=== PATIENT | female | born 1950 | race Caucasian/White ===

== ENCOUNTER 2017-05-13 08:39 | Inpatient (IN) | payer OTHER ==
[~2017-05-13 08:39] MED LIST: ROPIVACAINE 0.2% 80 MG, EPINEPHrine 0.2 MG, KETOROLAC TROMETHAMINE 30 MG in SYRINGE 0 ML IU ONE; TRANEXAMIC ACID 3,000 MG in NS (SYRINGE) 50 ML IRR ONE
[2017-05-13] MEDS ORDERED: TRANEXAMIC ACID 3,000 MG/50 ML BAG IRR ONE (11:08)
--- NOTE | 2017-05-13 11:14 | PDHPUP ---
History & Physical Update H&P update statement: This history and physical update is based on an assessment of the patient which was completed after admission or registration (within 24 hours), but prior to the surgery/procedure. H&P update: H&P reviewed & patient examined, no change in patient's condition since H&P completed
[2017-05-13] MEDS ORDERED: ACETAMINOPHEN 325 MG TAB PO ONE (12:17)
[2017-05-13] MEDS ORDERED: FAMOTIDINE 20 MG TAB PO ONE (12:17)
[2017-05-13] MEDS ORDERED: DEXAMETHASONE 4 MG/ML VIAL IVP ONE (12:17)
[2017-05-13] MEDS ORDERED: ceFAZolin 2 GM/SWFI 2 GM/20 ML SYR IVP ONE ×2 (12:17→12:30)
[2017-05-13] MEDS ORDERED: LR 1,000 ML IV ONE (12:18)
[2017-05-13] MEDS ORDERED: LIDOCAINE 1% 2 ML INJ ID PRN (12:18)
[2017-05-13] MEDS ORDERED: MIDAZOLAM 2 MG/2 ML VIAL IVP ONE (13:06)
[2017-05-13] MEDS ORDERED: PROPOFOL 200 MG/20 ML VIAL ONE ×2 (13:57→15:19)
[2017-05-13] MEDS ORDERED: MEPERIDINE 25 MG/ML SYR IVP PRN (14:30)
[2017-05-13] MEDS ORDERED: ONDANSETRON 4 MG/2 ML VIAL IVP PRN ×2 (14:30→14:37)
[2017-05-13] MEDS ORDERED: METOCLOPRAMIDE 10 MG/2 ML VIAL IVP PRN ×2 (14:30→14:37)
[2017-05-13] MEDS ORDERED: PROMETHAZINE HCL 25 MG/ML INJ IVP PRN ×2 (14:30→14:37)
[2017-05-13] MEDS ORDERED: HYDROmorphONE/DILAUDID 1 MG/ML INJ IVP PRN (14:30)
[2017-05-13] MEDS ORDERED: LABETALOL HCL 5 MG/ML 20 ML MDV IVP PRN (14:30)
[2017-05-13] MEDS ORDERED: HYDROCODONE/APAP 5/325 TAB PO PRN (14:30)
[2017-05-13] MEDS ORDERED: fentaNYL 100 MCG/2 ML INJ IVP PRN (14:30)
[2017-05-13] MEDS ORDERED: LR 500 ML IV PRN (14:30)
[2017-05-13] MEDS ORDERED: NALOXONE HCL 0.4 MG/ML INJ IVP PRN (14:30)
--- NOTE | 2017-05-13 14:30 | PDANEPAE ---
ANE History of Present Illness 66 year female for left anterior hip arthroplasty. ANE Past Medical History - Cardiovascular History Hx Hypertension: No Hx Arrhythmias: No Hx Chest Pain: No Hx Coronary Artery / Peripheral Vascular Disease: No Hx CHF / Valvular Disease: No Hx Palpitations: No - Pulmonary History Hx COPD: No Hx Asthma/Reactive Airway Disease: No Hx Recent Upper Respiratory Infection: No Hx Oxygen in Use at Home: No Hx Sleep Apnea: No Sleep Apnea Screening Result - Last Documented: Negative Pulmonary History Comment: CHILDHOOD ASTHMA. 02/2017 - POSS PNEUMONIA FOLLOWING FLU VIRUS - NOW RESOLVED - Neurologic History Hx Cerebrovascular Accident: No Hx Seizures: No Hx Dementia: No Neurologic History Comment: MIGRAINES IN PAST 20s-50s - Endocrine History Hx Diabetes: Yes Endocrine History Comment: HYPOTHYROID - Renal History Hx Renal Disorders: No Renal History Comment: KIDNEY STONES IN PAST W/LITHOTRIPSY - Liver History Hx Hepatic Disorders: No - Neurological & Psychiatric Hx Hx Neurological and Psychiatric Disorders: No - Cancer History Hx Cancer: No - Congenital Disorder History Hx Congenital Disorders: No - GI History Hx Gastrointestinal Disorders: No - Other Health History 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 BOIL ARM. TONSILECTONY. WISDOM TEETH ANE Review of Systems Review of systems is: negative Review of Systems: - Exercise capacity METS (RN): 4 METS ANE Patient History - Allergies Allergies/Adverse Reactions: corn Allergy (Verified 05/13/17 13:12) Other-Enter Comments egg Allergy (Verified 05/13/17 13:12) Other-Enter Comments ephedrine [From Tedral] Allergy (Verified 04/13/17 11:39) Hives gluten Allergy (Verified 05/13/17 13:12) Other-Enter Comments Milk Containing Products [dairy] Allergy (Verified 05/13/17 13:12) Other-Enter Comments monosodium glutamate Allergy (Verified 05/13/17 13:12) Other-Enter Comments phenobarbital [From Tedral] Allergy (Verified 04/13/17 11:39) Hives theophylline [From Tedral] Allergy (Verified 04/13/17 11:39) Hives - Home Medications Home Medications: Ascorbic Acid [Vitamin C 500 mg (*)] 1,000 mg PO BID 04/13/17 [Last Taken 1 Week Ago ~05/06/17] Herbals/Supplements -Info Only 1 ea PO DAILY 04/13/17 [Last Taken 1 Week Ago ~] Multivitamins [Multivitamin (*)] 1 each PO DAILY 04/13/17 [Last Taken 1 Week Ago ~05/06/17] Thyroid,Pork [[place] Thyroid] 30 mg PO DAILY 04/13/17 [Last Taken 05/13/17 09:00 ] Ferrous Sulfate [Ferrous Sulf 325 MG (*)] 325 mg PO DAILY 05/13/17 [Last Taken 05/02/17] - NPO status NPO Since - Liquids (Date): 05/13/17 NPO Since - Liquids (Time): 10:30 NPO Since - Solids (Date): 05/12/17 NPO Since - Solids (Time): 20:00 - Smoking Hx Smoking Status: Never smoked - Family Anes Hx Family Hx Anesthesia Complications: NEG ANE Labs/Vital Signs - Vital Signs Blood Pressure: 117/73 Heart Rate: 70 Respiratory Rate: 16 O2 Sat (%): 96 Height: 160.02 cm Weight: 56.699 kg ANE Physical Exam - Airway Neck exam: FROM Mallampati Score: Class 1 Mouth exam: normal dental/mouth exam - Pulmonary Pulmonary: no respiratory distress - Cardiovascular Cardiovascular: regular rate and rhythym ANE Anesthesia Plan Anesthesia Plan: spinal
[2017-05-13] MEDS ORDERED: diphenhydrAMINE 25 MG CAP PO PRN (14:37)
[2017-05-13] MEDS ORDERED: oxyCODONE IR 5 MG TAB PO PRN (14:37)
[2017-05-13] MEDS ORDERED: MAGNESIUM HYDROXIDE 30 ML UDCUP PO PRN (14:37)
[2017-05-13] MEDS ORDERED: DIPHENOXYLATE/ATROPINE LOMOTIL 1 TAB PO PRN (14:37)
[2017-05-13] MEDS ORDERED: TEMAZEPAM 15 MG CAP PO PRN (14:37)
[2017-05-13] MEDS ORDERED: LACTULOSE 20 GM/30 ML UDCUP PO PRN (14:37)
[2017-05-13] MEDS ORDERED: POLYETHYLENE GLYCOL 3350 17 GM PKT PO PRN (14:37)
[2017-05-13] MEDS ORDERED: PROMETHAZINE HCL 25 MG SUPPR PR PRN (14:37)
[2017-05-13] MEDS ORDERED: CYCLOBENZAPRINE 10 MG TAB PO PRN (14:37)
[2017-05-13] MEDS ORDERED: ONDANSETRON DISINTEGRATING 4 MG TAB PO PRN (14:37)
[2017-05-13] MEDS ORDERED: BISACODYL 10 MG SUPP PR PRN (14:37)
[2017-05-13] MEDS ORDERED: LR 1,000 ML IV SCH (15:00)
--- NOTE | 2017-05-13 15:38 | POSTANESTH ---
Post Anesthetic Evaluation Cardiovascular Status: Normal, Stable Respiratory Status: Normal, Stable Level of Consciousness/Mental Status: Can Participate in Eval Pain Control: Adequate, Prn Tx Ordered Nausea/Vomiting Control: Adequate, Prn Tx Ordered Complications Possibly Related to Anesthesia: None Noted
--- NOTE | 2017-05-13 15:54 | POSTOPPROG ---
Post Op Note Date of Operation: 05/13/17 Surgeon: Abbey Bedolla Gmat Instructor: Chrissy Bedolla PAc Anesthesiologist: Sage Anesthesia: Spinal Pre-op Diagnosis: L hip DJD Post-op Diagnosis: same Indication: pain Procedure: L CEZAR Findings: djd hip Inf/Abcess present in the surg proc area at time of surgery?: No EBL: 100-500
[2017-05-13] MEDS: ACETAMINOPHEN 325 MG TAB PO SCH (18:18)
[2017-05-13] MEDS: FAMOTIDINE 20 MG TAB PO SCH (22:27)
[2017-05-13] MEDS: SENNOSIDES/DOCUSATE SODIUM TAB PO SCH (22:27)
[2017-05-13] MEDS: ASPIRIN 81 MG CHEWABLE TAB PO SCH (22:27)
[2017-05-13] MEDS: ceFAZolin 2 GM/DEXTROSE 100 ML IV SCH (22:27)
[2017-05-14] MEDS: ACETAMINOPHEN 325 MG TAB PO SCH ×5 (00:13→23:46)
[2017-05-14] MEDS: ceFAZolin 2 GM/DEXTROSE 100 ML IV SCH (05:21)
[2017-05-14] MEDS: ASPIRIN 81 MG CHEWABLE TAB PO SCH ×2 (08:22→21:42)
[2017-05-14] MEDS: SENNOSIDES/DOCUSATE SODIUM TAB PO SCH ×2 (08:22→21:42)
[2017-05-14] MEDS: FAMOTIDINE 20 MG TAB PO SCH ×2 (08:22→21:42)
[2017-05-14] MEDS: THYROID 60 MG TAB PO SCH (08:24)
[2017-05-14] MEDS ORDERED: NS BOLUS 1000 ML (Wide open) IV ONE (10:30)
--- NOTE | 2017-05-14 12:36 | SOAPPROG ---
SOAP Progress Note Assessment/Plan: Assessment: Patient is doing well POD 1 s/p LTHA Pain management: pain is well controlled on oral pain meds. VTE ppx: recommend aspirin 81 mg BID for 4 weeks, cont NAV and SCDs Anemia: level is expected initially postop. Continue to monitor D/c planning: d/c to home today vs tomorrow pending release from PT and improvement in lightheadedness lightheadedness: continues to be symptomatic, IV bolus this morning, may benefit from another night in the hospital Plan: 05/14/17 12:32 Subjective: Caitlyn is doing well today, denies SOB, chest pain and N/v. c/o lightheadedness Objective: Vital Signs Temp Pulse Resp BP Pulse Ox 36.8 C 87 18 88/54 L 95 05/14/17 11:47 05/14/17 11:47 05/14/17 08:00 05/14/17 11:47 05/14/17 08:00 Laboratory Results 05/14/17 04:40 05/13/17 05/14/17 05/15/17 05:59 05:59 05:59 Intake Total 2705 500 Output Total 1400 550 Balance 1305 -50 LLE: incision dressing is clean and dry, NVI, +pf/df ICD10 Worksheet Patient Problems: Problems Problem Status Onset Primary localized osteoarthritis of left hip Acute
[2017-05-14 15:52] VITALS: RESP 16
[2017-05-14 23:36] VITALS: TEMP 98.2
[2017-05-15] MEDS: ACETAMINOPHEN 325 MG TAB PO SCH ×2 (05:45→11:23)
[2017-05-15] MEDS: THYROID 60 MG TAB PO SCH (08:22)
[2017-05-15] MEDS: SENNOSIDES/DOCUSATE SODIUM TAB PO SCH (08:24)
[2017-05-15] MEDS: ASPIRIN 81 MG CHEWABLE TAB PO SCH (09:07)
[2017-05-15] MEDS: FAMOTIDINE 20 MG TAB PO SCH (09:07)
--- NOTE | 2017-05-15 11:19 | SOAPPROG ---
SOAP Progress Note Assessment/Plan: Assessment: Patient is doing well POD 2 s/p LTHA Pain management: pain is well controlled on oral pain meds. VTE ppx: recommend aspirin 81 mg BID for 4 weeks, cont NAV and SCDs Anemia: level is expected initially postop. Continue to monitor D/c planning: d/c to home today vs tomorrow pending release from PT and improvement in lightheadedness lightheadedness: resolved Plan: 05/14/17 12:32 05/15/17 11:17 Subjective: denies lightheadedness, mild pain Objective: Vital Signs Temp Pulse Resp BP Pulse Ox 36.8 C 87 16 100/56 L 95 05/15/17 07:40 05/15/17 07:40 05/15/17 07:40 05/15/17 07:40 05/15/17 07:40 Laboratory Results 05/15/17 04:10 05/14/17 05/15/17 05/16/17 05:59 05:59 05:59 Intake Total 2705 4150 Output Total 1400 5050 450 Balance 1305 -900 -450 incision dressing is clean and dry ICD10 Worksheet Patient Problems: Problems Problem Status Onset Primary localized osteoarthritis of left hip Acute
[2017-05-15 11:33] VITALS: BP 99/62; PULSE 83; O2SAT 98
--- NOTE | 2017-05-21 09:23 | GOP ---
[f rep st] OPERATIVE REPORT DATE OF OPERATION: 05/13/2017 SURGEON: Sury Bedolla MD BEEHIVE KILN SUPERVISOR: SYLVESTER Munguia. ANESTHESIA: Spinal. PREOPERATIVE DIAGNOSIS: Left hip osteoarthritis. POSTOPERATIVE DIAGNOSIS: Left hip osteoarthritis. PROCEDURE PERFORMED: Left total hip arthroplasty with x-ray. FINDINGS: ESTIMATED BLOOD LOSS: 200 cc. INDICATIONS: The patient has progressively worsening arthritis of the hip which has failed medical m anagement. The patient understands the treatment options including continued non-operative care and has selected surgical intervention. The patient has decided to undergo total hip arthroplasty via th e direct anterior approach, understanding the risks of the procedure including, but not limited to, n eurovascular injury, infection, persistent pain, component wear and loosening, deep venous thrombosis , pulmonary embolism, limb length inequality, hip instability (including dislocation), and intra-oper ative fractures. DESCRIPTION OF PROCEDURE: After proper identification of the patient including verification and braydon ing the surgical site, the patient was brought to the operating room and placed in the supine positio n. All bony prominences were well padded. Anesthesia was induced without complication and intraveno us prophylactic antibiotics were administered prior to skin incision. The operative leg was placed in the Trumpf Arch table extension and the well leg in a Yellofin leg ho lder. The patient was prepped and draped in the usual sterile fashion. The C-arm was draped for int ra-operative fluoroscopy to check acetabular position, femoral component position including leg lengt h and femoral offset. Attention was then drawn to surgical exposure of the hip. An incision was made with a #10 Bard Darleen r blade starting 3 cm lateral and 3 cm distal to the anterior superior iliac spine measuring 8-10 cm and coursing distally toward the greater trochanter. The skin and subcutaneous tissues were divided sharply down to the fascia julio césar. The fascia julio césar was incised in line with the skin incision exposing the underlying tensor fascia julio césar muscle. The muscle was bluntly elevated from the fascia and the f irst extracapsular Cobra retractor was placed laterally at the junction of the superior femoral neck and greater trochanter. The lateral femoral circumflex vessels were identified, cauterized, and divi ded with the Aquamantys bipolar cautery. The deep investing fascia of the TFL was divided to allow p charly mobilization of the muscle preventing damage during the retraction. The reflected head of the rectus femoris muscle was elevated off the anterior hip capsule and a medial Cobra retractor was plac ed just proximal to the lesser trochanter. The anterior capsulotomy was made sharply from the superolateral acetabulum to the saddle junction of the superior femoral neck and greater trochanter, then coursing inferomedial towards the lesser troc hanter. The retractors were then placed in the intracapsular position for femoral neck osteotomy. C orresponding to pre-operative templating, the osteotomy was made with the oscillating saw carefully p rotecting the greater trochanter and soft tissues. The femoral head was removed from the acetabulum with a corkscrew and confirmed to be severely arthritic with exposed bone, deformity and osteophytes. Similar findings were confirmed in the acetabulum. The Arch table extension was then placed in 40 degrees external rotation. Attention was then drawn to the acetabular preparation. After placement of the anterior and posterio r Cobra retractors outside the labrum and intracapsular, the circumferential labrum was removed sharp ly. The foveal contents were then removed and hemostasis obtained with cautery. The first reamer selected was sized using the removed femoral head. Reaming began with medialization and then commenced in 2 mm increments at 45 degrees of abduction and 15 degrees of anteversion using fluoroscopic navigation. Reaming ceased 1 mm less than the definitive acetabular component and yaya esponded to the pre-operative templating. The final acetabular component was inserted using fluorosc opy to achieve proper orientation yielding excellent purchase and stability in the acetabulum. The f inal acetabular liner was then placed and its seating confirmed. Attention was then turned to the femur. The Arch table extension was placed in extension and adducti on, delivering the osteotomized femoral neck into the wound. A 2-pronged femoral elevator was placed at the calcar and another at the tip of the greater trochanter. The posterolateral capsule was rele ased with cautery allowing mobilization of the femur lateral and anterior for preparation. The exter nal rotators were visualized and preserved. A curette and rongeur were used to open the starting poi nt for broaching. Serial broaching started with the #0 broach and ended with the broach that exhibit ed excellent fit in the proximal femur. A change in pitch during mallet strikes was accompanied by t he inability to advance the broach any further. The trial reduction was performed and fluoroscopic n avigation was utilized to check limb length. Adjustments were made to equalize limb length according ly. After the final trials were accepted they were removed and the wound was copiously lavaged. The femo ral component was seated to the same depth as the final broach and the femoral head was impacted onto the clean trunnion. The hip was then reduced for the final time and once more fluoroscopy was used to check that limb length equality was achieved. The wound was irrigated and closed in layers, the fascia julio césar with 2-0 Quill, the subcutaneous tissue with 2-0 Quill, and the skin with Dermabond. Sterile dressings were applied. Final sharps and spon ge counts were accurate. The patient was then transferred to a hospital bed and brought to the [facility] room in stable condition. IMPLANTS: Accolade II size 5 at 127. Acetabular component a 50 mm Trident II. The liner is a Tride nt X3, 32 mm. Head is a Biolox Delta 32 mm +0. /[id number]/MODL
== END 2017-05-15 12:13 | disposition home or self-care (01) | DRG 470 ==
LOC: F3N 11:42
PROVIDERS: ADMIT Orthopaedic Surgery; ATTEND Orthopaedic Surgery
PROC: 0SRB04A Replacement of Left Hip Joint with Ceramic on Polyethylene Synthetic Substitute, Uncemented, Open Approach (ICD-10-PCS; principal; 2017-05-13 14:15)
DX: M16.12 Unilateral primary osteoarthritis, left hip (principal); D62 Acute posthemorrhagic anemia; E03.9 Hypothyroidism, unspecified; G43.909 Migraine, unspecified, not intractable, without status migrainosus; Z87.442 Personal history of urinary calculi
CPT/HCPCS: 97116-GP; 97161-GP; 97165-GO; 97535-GO; G8987-GO-CK; G8988-GO-CI; G8989-GO-CI; J0171; J0690; J1100; J1885; J2250; J2405; J2704; J2795

== ENCOUNTER 2017-11-29 09:53 | Observation (INO) | payer OTHER ==
[2017-11-29] MEDS ORDERED: DIAZEPAM 5 MG/ML 1 ML SYR IVP ONE ×2 (12:08→14:03)
[2017-11-29 12:45] LABS: PLATELET COUNT 296 10^3/uL (150-400)
--- NOTE | 2017-11-29 12:45 | EDPHY ---
H & P Smoking Status: Never smoked Time Seen by Provider: 11/29/17 11:20 HPI/ROS: CHIEF COMPLAINT: Severe left hip pain HISTORY OF PRESENT ILLNESS: 66-year-old female presents to the emergency department with severe pain in her left hip. The patient states that she had a total left hip replacement May of [address] Dre Bedolla. The patient has been doing well. She has been taking dance classes over last few weeks and does not recall in known trauma or injury but thinks that maybe she has overdone it. She is now having so much discomfort in her left hip that she cannot walk. Pain has been getting progressively worse over last 2 weeks but acutely worse over last 48 hr. No fevers or chills. No pain in her groin. She is unable to bear weight or walk. She has constant level of a dull achy pain and then will get sharp intense pain that will take her breath away up to a level of a 9 or higher. She denies any radicular symptoms in her lower leg. She denies feeling weak in her lower leg. She feels "it feels like I loss the cushion in my left hip". Denies abdominal pain. No fevers or chills. No rash. She has taken ibuprofen and Tylenol with only minimal relief. The pain in her left hip is especially worse with any kind of movement. REVIEW OF SYSTEMS: Constitutional: No fever, no chills. Eyes: No double or blurry vision. ENT: No sore throat. Respiratory: No cough, no shortness of breath. Cardiac: No chest pain. Gastrointestinal: No abdominal pain, vomiting or diarrhea. Genitourinary: No dysuria. Musculoskeletal: No neck or back pain. Skin: No rashes. Neurological: No headache. (Sophie Nelson) Past Medical/Surgical History: Degenerative joint disease, left total hip replacement by Dr. Dre Bedolla 05/13/2017 (Sophie Nelson) Social History: and lives in [place]. She is retired. (Sophie Nelson) Physical Exam: General Appearance: Alert, no distress. Eyes: Pupils equal and round. Extraocular motions are all intact. ENT: Mouth: Mucous membranes moist. Respiratory: No wheezing, rhonchi, or rales, lungs are clear to auscultation. Cardiovascular: Regular rate and rhythm. Gastrointestinal: Abdomen is soft and nontender, no masses, no rebound or guarding, bowel sounds normal. Neurological: Alert and oriented x 3, cranial nerves II through XII grossly intact Skin: Warm and dry, no rashes. Musculoskeletal: Nontender to palpate along the cervical, thoracic or lumbar spine. Neck is supple. Extremities: Limited range of motion of the left hip secondary to pain. She has no pain however with passive internal or external rotation of the left hip. She has pain with flexing her left knee. She also developed severe pain in her left hip even just with lowering the head of the bed down to try to lie her supine. She has a healed incision to the left lateral aspect of her hip which reveals no redness or warmth. It is nontender to palpate over the incision over the lateral aspect of her left hip. Psychiatric: Patient is oriented X 3, there is no agitation. (Sophie Nelson) Constitutional: Initial Vital Signs Temperature (C) 36.8 C 11/29/17 09:54 Heart Rate 84 11/29/17 09:54 Respiratory Rate 18 11/29/17 09:54 Blood Pressure 140/84 H 11/29/17 09:54 O2 Sat (%) 96 11/29/17 09:54 O2 Delivery Mode Nasal Cannula O2 (L/minute) 2 Allergies/Adverse Reactions: corn Allergy (Verified 11/29/17 09:54) Other-Enter Comments egg Allergy (Verified 11/29/17 09:54) Other-Enter Comments ephedrine [From Tedral] Allergy (Verified 11/29/17 09:54) Hives gluten Allergy (Verified 11/29/17 09:54) Other-Enter Comments Milk Containing Products [dairy] Allergy (Verified 11/29/17 09:54) Other-Enter Comments monosodium glutamate Allergy (Verified 11/29/17 09:54) Other-Enter Comments phenobarbital [From Tedral] Allergy (Verified 11/29/17 09:54) Hives theophylline [From Tedral] Allergy (Verified 11/29/17 09:54) Hives Home Medications: Medication Instructions Recorded Herbals/Supplements -Info Only 1 ea PO DAILY 11/29/17 Nature-Throid 48.75mg Tab 48.75 mg PO DAILY 11/29/17 Acetaminophen [Tylenol 325mg (*)] 650 mg PO Q4HRS PRN tab 11/30/17 Gabapentin [Neurontin 100 MG (*)] 100 mg PO TID #60 cap 11/30/17 methylPREDNISolone [Medrol Dose 4 mg PO DAILY #1 ea 11/30/17 Eulalio] oxyCODONE IR [Oxycodone Ir (*)] 5 - 10 mg PO Q3HRS PRN #15 tab 11/30/17 Medical Decision Making - Diagnostics Imaging: I viewed and interpreted images myself ED Course/Re-evaluation: 66-year-old female presents to the emergency department with severe pain in her left hip. Examination of her hip reveals healed surgical incision. It is not warm to the touch. She has no pain with external or internal rotation of the left hip. No palpable bony tenderness. X-rays of her left hip reveal no fractures or evidence of dislocation. Hardware appears in place. Patient had IV established and was given IV Toradol, IV Valium, IV Dilaudid with only minimal relief. Patient will be admitted to the hospitalist, Dr. Mao, for pain management. I also spoke with Rafa, on-call physician anesthetic assistant for Dr. Bedolla, who will alert Dr. Tye michelle that his patient is being admitted to the hospital with left hip pain. (Sophie Nelson) I did not see this patient while she was in the emergency department. However her care was discussed with the PA while the patient was in the department. I agree with treatment plan and management (Scott Andujar) Differential Diagnosis: Including but not limited to muscular strain, septic arthritis, fracture, dislocation, contusion, sprain (Sophie Nelson) - Data Points Laboratory Results: Laboratory Results 11/29/17 12:30 11/29/17 12:30 Medications Given: Discontinued Medications Acetaminophen (Tylenol) 650 mg PO Q4HRS PRN PRN Reason: Pain, Mild/Fever, Can Take PO Stop: 05/28/18 15:47 Last Admin: 11/30/17 09:28 Dose: 650 mg Celecoxib (Celebrex) 200 mg PO BID KEIRY Stop: 05/29/18 08:59 Last Admin: 11/30/17 09:29 Dose: 200 mg Diazepam (Valium) 2.5 mg IVP EDNOW ONE Stop: 11/29/17 12:09 Last Admin: 11/29/17 12:42 Dose: 2.5 mg Diazepam (Valium) 2.5 mg IVP EDNOW ONE Stop: 11/29/17 14:04 Last Admin: 11/29/17 14:29 Dose: 2.5 mg Diazepam (Valium) 2 mg PO Q6HRS PRN PRN Reason: Anxiety, Able to Take PO Stop: 05/28/18 16:04 Last Admin: 11/29/17 22:16 Dose: 2 mg Enoxaparin Sodium (Lovenox) 40 mg SC DAILY [facility] Stop: 05/29/18 08:59 Last Admin: 11/30/17 09:29 Dose: 40 mg Gabapentin (Neurontin) 100 mg PO TID [facility] Stop: 05/29/18 15:59 Last Admin: 11/30/17 15:34 Dose: 100 mg Hydromorphone HCl (Dilaudid) 0.5 mg IVP EDNOW ONE Stop: 11/29/17 15:43 Last Admin: 11/29/17 16:35 Dose: 0.5 mg Ketorolac Tromethamine (Toradol) 15 mg IVP EDNOW ONE Stop: 11/29/17 14:03 Last Admin: 11/29/17 14:28 Dose: 15 mg Miscellaneous Medication (Nature-Throid 48.75mg Tab) 48.75 mg PO DAILY [facility] Stop: 05/29/18 08:59 Last Admin: 11/30/17 06:54 Dose: 48.75 mg Oxycodone HCl (Oxycodone Ir) 5 - 10 mg PO Q3HRS PRN PRN Reason: Pain, Severe Able to Take PO Stop: 12/09/17 15:47 Last Admin: 11/29/17 23:27 Dose: 5 mg Departure - Departure Disposition: [facility] Inpatient Acute Clinical Impression: Left hip pain Condition: Good
[2017-11-29] MEDS ORDERED: KETOROLAC 15 MG/1 ML SDV IVP ONE (14:02)
[2017-11-29] MEDS ORDERED: HYDROmorphONE/DILAUDID 1 MG/ML INJ IVP ONE (15:42)
[2017-11-29] MEDS ORDERED: oxyCODONE IR 5 MG TAB PO PRN (15:48)
[2017-11-29] MEDS ORDERED: HYDROmorphONE/DILAUDID 1 MG/ML INJ IVP PRN (15:48)
[2017-11-29] MEDS ORDERED: ONDANSETRON 4 MG/2 ML VIAL IVP PRN (15:48)
[2017-11-29] MEDS ORDERED: HYDROCODONE/APAP 5/325 TAB PO PRN (15:48)
[2017-11-29] MEDS ORDERED: ONDANSETRON DISINTEGRATING 4 MG TAB PO PRN (15:48)
[2017-11-29] MEDS ORDERED: DIAZEPAM 2 MG TAB PO PRN (16:05)
--- NOTE | 2017-11-29 16:36 | GHP ---
[f rep st] HISTORY AND PHYSICAL DATE OF ADMISSION: 11/29/2017 CHIEF COMPLAINT: Left-sided hip pain. HISTORY OF PRESENT ILLNESS: This is a 66-year-old female, who had a left-sided CEZAR in May by Dr Delaney Bedolla. She had recovered well since then. About 3 weeks ago, she increased her activity level by taking 7 tango classes a week. She had 1 class where she was doing significant hip rotating type moves. Later that evening she began to notice worsening pain in her left hip. This was about 2 wee ks ago. She initially felt as though this were muscular in nature and did some exercises to stretch this out. She did continue taking tango classes. Yesterday, the pain became extremely severe. She notes nothing clearly that worsened it yesterday, though it is located in her left buttocks as well a s left hip and somewhat in her left groin. The pain is worse with any movement of her leg. She is b nedra able to walk today. Had to clutch the wall to make it to the bathroom. She has not had any fe vers. She has not noticed any swelling or redness around the area. She has taken Tylenol as well as Advil with minor improvement in her pain. She called Dr. Bedolla's office over the weekend withou t receiving any clear advice. PAST MEDICAL/SURGICAL HISTORY: 1. Hypothyroid. 2. Left CEZAR in May. 3. Lithotripsy in February of 2016. MEDICATIONS: Please see medication reconciliation. ALLERGIES: Multiple food allergies, and she has an allergy to Tedral. SOCIAL HISTORY: She does not drink or smoke. FAMILY HISTORY: Reviewed and noncontributory. REVIEW OF SYSTEMS: 10-point review of systems is conducted and is negative except per HPI. PHYSICAL EXAM: VITAL SIGNS: Blood pressure 110/64, heart rate 62, respiration rate 16, sating at 97 % on 2 L. Temperature 36.9. GENERAL: The patient is a pleasant female who appears somewhat uncomfo rtable lying in bed, barely able to move side to side. HEENT: Shows her to be normocephalic, atraum atic. CARDIOVASCULAR: Regular rate and rhythm. There are no murmurs, rubs, or gallops. PULMONARY: Shows lungs are clear to auscultation bilaterally. ABDOMEN: Soft, nontender, nondistended. SKIN: Showed no rash. : No Felix. NEUROLOGIC: Shows her to be alert and oriented x3. Moving all ex tremities. PSYCHIATRIC: Shows normal mood and affect. EXTREMITIES: Shows her left leg to be non e rythematous, non edematous. She has extremely severe pain with any motion of her left leg. LABS: CBC is normal. Basic metabolic panel is normal. DATA: 1. I discussed with Sophie Nelson, PAC. Will admit to med/surg. 2. I reviewed her hip x-ray. This shows a history of a CEZAR with no periprosthetic fracture, non dis located. IMPRESSION AND PLAN: 1. Left hip pain: Quite severe. I doubt infection. Certainly would consider musculoskeletal issue s as well as potentially lumbar spinal issues. To start with, I have ordered a hip CT scan to get a better look at things. I note that she is afebrile, has a normal white count. No evidence of a deep vein thrombosis and certainly would not cause this type pain. Dr. Bedolla has been consulted by [facility] emergency department. He will assist in the care of the patient as well. She will likely need ph ysical therapy and occupational therapy. I provided her medications for pain relief. 2. Hypothyroid: Continue her home thyroid medication. 3. Venous thromboembolism risk: I believe that this is high given her relatively recent total hip a rthroplasty and her immobility. I have given her Lovenox. /[id number]/MODL
[2017-11-29] MEDS: ACETAMINOPHEN 325 MG TAB PO PRN (22:14)
[2017-11-30] MEDS ORDERED: ENOXAPARIN 40 MG/0.4 ML SYR SC SCH (09:00)
[2017-11-30] MEDS ORDERED: NATURE THROID PO SCH (09:00)
[2017-11-30] MEDS: ACETAMINOPHEN 325 MG TAB PO PRN (09:28)
--- NOTE | 2017-11-30 10:14 | GCON ---
[f rep st] CONSULTATION ORTHOPEDIC CONSULTATION REASON FOR CONSULTATION: Left hip and lower extremity pain. HISTORY OF PRESENT ILLNESS: This is a 66-year-old female who underwent a left anterior approach tota l hip arthroplasty with Dr. Bedolla in May 2017. She has initially had an excellent result. She has been doing very active dance and tango classes for the last 2 weeks, which has significantly increased her discomfort and pain in the left back, buttock and hip, and lower extremity region. The pain has become so intolerable that she called the office over the weekend, and presented to the [facility] department due to difficulty weightbearing and walking during activities of normal living. Sh e denies any fevers, chills, nausea, vomiting, chest pain, shortness of breath. Denies thigh pain or start-up pain. She states she has been having some back pain. Pain is mostly located to the buttoc k. It can radiate around through the groin to the anterior aspect of the hip, however, it also radia nellie posteriorly and down to the lateral aspect of the leg and is associated with numbness and tinglin g. She denies bowel or bladder discomfort. PAST MEDICAL HISTORY: Significant for hypothyroidism. MEDICATIONS: Please see med rec. ALLERGIES: Include multiple food allergies and allergy to Tedral. SOCIAL HISTORY: Denies nicotine or alcohol use. FAMILY HISTORY: Noncontributory. REVIEW OF SYSTEMS: 10-point review of systems conducted and negative except per HPI. PHYSICAL EXAM: VITAL SIGNS: Blood pressure 131/73, heart rate 59, respirations 16, O2 saturation 10 0% on 1 L, and temperature 36.4. CONSTITUTIONAL: Patient is awake, alert, and oriented x3, in no ac [place] distress. She has easy and nonlabored breathing. ABDOMEN: Soft and nontender. EXTREMITIES: L eft lower extremity, the incision is clean, dry, and intact. No erythema, drainage, or signs of infe ction. She has no pain with log roll. She flexes to 130, external to 60, internal 10, abduction to 40, adduction to 30, all without pain. However, she does have a positive straight leg raise. Positi ve SEEMA with pain located to the back. Pain radiates down the posterior lateral aspect of the thigh and into the lateral aspect of the leg, not completely radiating into the foot or ankle. She has in tact 5/5 strength with EHL, FHL, tibialis anterior, and gastroc soleus. She has palpable DP and PT p ulses. She has 2+ patellar, Achilles reflexes, and 2 beats of clonus bilaterally. IMAGING: X-rays and CT scan of the left hip essentially revealed a normal left hip, normal left tota l hip arthroplasty that is well positioned. ASSESSMENT AND PLAN: 66-year-old female with acute exacerbation of pain in the setting of a total hi p arthroplasty 6 months ago. I have a high suspicion for lumbar radiculopathy. We will order an MRI of the patient's lumbar spine. Patient was briefly discussed with Dr. Bedolla, who is aware. I h ave a low suspicion for infection or aseptic loosening. We will attempt to control the patient's corey n with muscle relaxants and anti-inflammatories. The patient understands and agrees with the treatme nt plan. All questions answered. /[id number]/MODL
--- NOTE | 2017-11-30 13:25 | HOSPPROG ---
Hospitalist Progress Note Assessment/Plan: 66y female with c/o hip pain. First encounter, chart reviewed. #Hip/back pain -MRI, reviewed, shows some lumbar abnormalities -consult neurosurg, d/w Kimmy Chicas -cont supportive care -pain meds #Hx hypothryoidism -cont home meds #Dispo -unclear -pt unable to walk -needs consult from neurosurgery -PT/OT eval -change to inpatient status Subjective: Still 8/10 pain. Unable to get up. Frustrated. Objective: Vital Signs Temp Pulse Resp BP Pulse Ox 36.5 C 69 16 110/75 94 11/30/17 11:37 11/30/17 11:37 11/30/17 11:37 11/30/17 11:37 11/30/17 11:37 Laboratory Results 11/29/17 23:40 11/29/17 11/30/17 12/01/17 05:59 05:59 05:59 Intake Total 200 Balance 200 - Physical Exam Constitutional: no apparent distress, appears nourished, uncomfortable Eyes: PERRL, anicteric sclera, EOMI Ears, Nose, Mouth, Throat: moist mucous membranes, hearing normal, ears appear normal Cardiovascular: No JVD, No tachycardia, No edema Respiratory: no respiratory distress, no rales or rhonchi, reduced air movement Gastrointestinal: normoactive bowel sounds, No tenderness, No ascites Skin: warm, normal color, No mottled Musculoskeletal: no joint effusions, joint tenderness, pain with ROM, muscular tenderness, abnormal gait, generalized weakness Neurologic: AAOx3 Psychiatric: interacting appropriately, not anxious, not encephalopathic, thought process linear ICD10 Worksheet Patient Problems: Problems Problem Status Onset Left hip pain Acute Primary localized osteoarthritis of left hip Acute
--- NOTE | 2017-11-30 14:19 | GDS ---
[f rep st] DISCHARGE SUMMARY DISCHARGE DIAGNOSIS: Hip and back pain. CONSULTATIONS: 1. Dr. Freeman of Orthopedics. 2. Dr. Phillip Celaya. PHYSICAL EXAM: GENERAL: The patient is alert. HOSPITAL COURSE: The patient is a 66-year-old female who presented to the emergency room with compla ints of hip pain. She was evaluated during this hospitalization. MRI of her lumbar spine was perfor med, noting mild abnormalities. She will also have x-rays performed prior to disposition that will b e followed up by Dr. Celaya. Her pain has improved. Initiation of Neurontin, as well as Medrol Dose sergio, will be done at the time of disposition. She will be discharged home. FOLLOWUP: Followup will be in the outpatient center with Dr. Celaya. I reviewed the patient's dispo sition with Dr. Phillip Celaya, who is in agreement with this plan. Patient will follow up with her primary care physician, Dr. Ralph Kam, as well. DISCHARGE MEDICATIONS: Prescriptions have been provided for Neurontin, as well as Medrol Dosepak, as recommended by Dr. Celaya. I have not adjusted the patient's other previously prescribed home medic ations. /[id number]/MODL
--- NOTE | 2017-11-30 14:28 | ASMTLACE ---
LACE Length of stay for Answers: 2 days current admission Acuity / Level of Answers: No Care: Did the patient have an inpatient admission? Comorbidities - select Answers: Diabetes (uncontrolled or all that apply controlled) Opioid dependence / Chronic pain Other Notes: Hypothyroid # of Emergency department Answers: 1-2 visits in the last 6 months Score: 9 Date Signed: 11/30/2017 02:27 PM Electronically Signed By:ANDREINA Demarco
--- NOTE | 2017-11-30 14:29 | ASMTCMCOM ---
CM Note CM Note Notes: Pt in for hip pain. Pt had L CEZAR in May with Dr. Bedolla. Ortho Dr. Freeman consulted. Pt is to follow up outpatient with neurosurgery. PT rec home. No CM d/c needs identified. Date Signed: 11/30/2017 02:29 PM Electronically Signed By:ANDREINA Demarco
[2017-11-30 15:47] VITALS: BP 106/68
[2017-11-30] MEDS ORDERED: GABAPENTIN 100 MG CAP PO SCH (16:00)
--- NOTE | 2017-11-30 16:31 | GCON ---
[f rep st] CONSULTATION I was asked to see this patient by Dr. Durga Freeman. I have since communicated her overall care with Ms. Valenzuela. I saw and examined the patient earlier this afternoon around 12 p.m. HISTORY OF PRESENT ILLNESS: The patient is a very pleasant, 66-year-old woman who had a left total h ip replacement around 6 months ago. She was doing well. She noticed that while she was doing the ta chris approximately 3 weeks ago she had excruciating back pain, which eventually radiated down the late ral aspect of her leg and beyer. She also notices that her left leg will feel weak and will sometimes "collapse or drag" on the left side. She has no symptoms on the right side. She also notices pares thesias and dysesthesias along the lateral thigh. PHYSICAL EXAMINATION: MUSCULOSKELETAL: The patient has grossly normal quad strength, limited by pos itioning in the bed, but I think it is at least a 4+. Her tibialis anterior on the left is a 3. Her EHL is a 3. Gastroc soleus 4+ all when compared to the right being a 5/5. Deep tendon reflexes are decreased about the gastroc soleus on the left when compared to the right, but both are trace. She does have a decreased sensation or paresthesias in the lateral thigh and beyer. VACULAR: Grossly nor mal. She does have a positive straight leg raise on the side. Hip range of motion is grossly normal . IMAGING: I reviewed the patient's MRI. Demonstrates a far lateral herniated disk within the left L4 foramen. She also has some clear facet diastasis at L4-5 and then anterolisthesis of L4 and L5 of a pproximately 2 mm. IMPRESSION: L4-5 spondylolisthesis, L4 radiculopathy, L4 foraminal stenosis, L4 weakness. ASSESSMENT AND PLAN: I discussed the plan of care with Ms. Valenzuela. Based on the patient's acuity, I think some steroids would really help calm this acute inflammation down and I have recommended a Med rol Dosepak for that. I have also recommended 300 mg of gabapentin to be titrated up 1 pill every da y or every 2 days. An anti-inflammatory either [id number] or prescription strength, i.e. Mobic , may be helpful as well. From a discharge perspective, I will leave that up to Ms. Valenzuela and the edical team entirely, however, I am okay with her being discharged. I did discuss all of the options down the line with the patient. This may include any epidural steroid injection. However, given th e patient is quite weak she may at some point require some sort of operation to remove the disk and/o r stabilize the spinal segment. I think that is unlikely at this point and I think she will probably recover some function, however, what remains to return is to be seen. I would like to see some lumb ar spine films with the patient standing, as I suspect there is a little bit of instability with ante rolisthesis of L4 and L5. We will take a look at that, but in any case the patient is free to be dis charged. I would like to see her in a week. I gave the patient my business card. Thank you kindly for this consultation. Please do not hesitate to give me a call if I can answer any additional questions regarding her care, . /[id number]/MODL
== END 2017-11-30 17:41 | disposition home or self-care (01) ==
LOC: F3N 16:46
PROVIDERS: ADMIT Student in an Organized Health Care Education/Training Program; ATTEND Student in an Organized Health Care Education/Training Program
DX: M25.552 Pain in left hip (principal); E03.9 Hypothyroidism, unspecified; Z96.642 Presence of left artificial hip joint
CPT/HCPCS: 72110; 72148; 73502; 73700; 96372; 96374; 96375; 96376; 97161; 99285; G0378; J1170; J1650; J1885; J3360